=== PATIENT | female | born 1990 | race Caucasian/White ===

== ENCOUNTER → 2017-06-14 | Outpatient (CLI) | payer BC ==
[2017-06-14 18:54] LABS: BASO % 0.3 % (0.0-1.0); EOS # 0.1 K/mm3 (0.0-0.50); EOS % 0.7 % (0.0-3.0); LARGE UNSTAINED CELL # 0.1 K/mm3 (0.0-0.4); LARGE UNSTAINED CELL % 1.2 % (0.0-4.0); LYMPH # 2.2 K/mm3 (1.5-6.5); LYMPH % 29.6 % (24.0-44.0); MEAN CORPUSCULAR HEMOGLOBIN 28.8 pg (27.0-33.0); MEAN CORPUSCULAR VOLUME 82.2 fl (80.0-96.0); MONO # 0.4 K/mm3 (0.0-0.8); MONO % 5.1 % (0.0-5.0); NEUTROPHILS # 4.8 K/mm3 (1.8-7.7); NEUTROPHILS % 63.1 % (36.0-66.0); PLATELET COUNT, AUTOMATED 250 k/mm3 (150-450); RED CELL DISTRIBUTION WIDTH 12.7 % (11.5-14.5); WHITE BLOOD COUNT 7.6 K/mm3 (4.0-10.0)
[2017-06-15 10:46] LABS: HBsAg Prenatal NEGATIVE (NEGATIVE)
== END ==
LOC: M SMT 13:48
PROVIDERS: ATTEND Advanced Practice Midwife
DX: Z36 Encounter for antenatal screening of mother (principal); Z3A.00 Weeks of gestation of pregnancy not specified

== ENCOUNTER → 2017-06-20 | Outpatient (CLI) | payer BC ==
[2017-06-20 18:52] LABS: ALT/SGPT 26 U/L (12-78); AST/SGOT 16 U/L (15-37); BILIRUBIN,TOTAL 0.7 MG/DL (0.2-1.0); CREATININE FOR GFR 0.55 MG/DL (0.55-1.02); GLOMERULAR FILTRATION RATE > 60.0 (>60); URIC ACID 2.7 MG/DL (2.6-6.0)
== END ==
LOC: M SMT 11:12
PROVIDERS: ATTEND Advanced Practice Midwife
DX: O10.011 Pre-existing essential hypertension complicating pregnancy, first trimester (principal); Z36 Encounter for antenatal screening of mother; Z3A.00 Weeks of gestation of pregnancy not specified

== ENCOUNTER → 2017-09-05 | Outpatient (CLI) | payer BC, MEDICAID ==
--- NOTE | 2017-09-05 16:30 | REP ---
Clinical: Anatomical evaluation. Comparison: None. Findings: Examination demonstrates a single live intrauterine in transverse (head to maternal right) presentation. motion is identified by technologist. Placenta is noted posteriorly and grade zero without evidence for placenta previa or abruption. Amniotic fluid volume is normal. Cervix measures 4.4 cm in length and appears closed. No evidence for nuchal cord. Gestational age by LMP 19 weeks 0 days with CALEB 01/30/2018 . Gestational age by current measurements 19 weeks 4 days with CALEB 01/26/2018 . FHR equals 141 beats per minute. BPD 4.3 cm 18 weeks 6 days HC 16.6 cm 19 weeks 2 days AC 14.3 cm 19 weeks 4 days FL 3.1 cm 19 weeks 5 days HL 3.1 cm 20 weeks 3 days HC/AC ratio 1.17 Estimated weight 300 grams ( 68th percentile). Anatomical assessment demonstrates normal structures including cranium, choroid plexus, cavum, cerebellum/posterior fossa, facial features, lungs, diaphragm, stomach, cord insertion/three-vessel cord, kidneys/bladder, and extremities. Impression: Single live intrauterine in transverse lie demonstrating appropriate oval growth. Limited evaluation of the heart and cardiac ventricle outflow tracts and spine. Remainder of the anatomical assessment is complete and normal. Signed by Yury Arzate MD 09/05/2017 01:46 P
== END ==
LOC: M RAD 12:57
PROVIDERS: ATTEND Advanced Practice Midwife
DX: Z34.80 Encounter for supervision of other normal pregnancy, unspecified trimester (principal)

== ENCOUNTER → 2017-09-19 | Outpatient (CLI) | payer BC, MEDICAID ==
--- NOTE | 2017-09-19 13:36 | REP ---
OB ULTRASOUND: Real-time sonographic evaluation of gravid uterus is performed. There is a single living intrauterine gestation. Estimated gestational age is 21 weeks 0 days with EDC 01/30/2018. Today's measurements indicate appropriate growth. BPD 52 mm = 21 weeks 5 days, 71st percentile HC 191 mm = 21 weeks 3 days, 61st percentile AC 164 mm = 21 weeks 3 days, 60th percentile Femur length 42 mm = 23 weeks 5 days, over 95th percentile HC/AC ratio 1.16 within normal range. Estimated weight 494 grams, 95th percentile. Cervix is closed and measures 4 cm in length. heart rate 143 beats per minute. SEEN/GROSSLY UNREMARKABLE Lateral ventricles Yes Posterior fossa Yes Upper lip Yes Four-chamber heart Yes LVOT Yes RVOT Yes Stomach Yes Cord insertion Yes Three vessel cord Yes Kidneys Yes Bladder Yes Spine Yes position: Vertex. Placenta: Posterior and grade 0 with no previa or abruption. Amniotic fluid: Within normal limits. Signed by Connor Hendrix MD 09/20/2017 09:12 A
== END ==
LOC: M RAD 10:00
PROVIDERS: ATTEND Advanced Practice Midwife
DX: O99.212 Obesity complicating pregnancy, second trimester (principal); Z3A.21 21 weeks gestation of pregnancy

== ENCOUNTER → 2017-10-24 | Outpatient (CLI) | payer BC, MEDICAID ==
[2017-10-24 13:20] LABS: HEMATOCRIT 34.8 % (36.0-47.0); HEMOGLOBIN 11.9 g/dl (12.0-16.0); MEAN CORPUSCULAR HEMOGLOBIN 29.5 pg (27.0-33.0); MEAN CORPUSCULAR HGB CONC 34.2 g/dl (32.0-36.5); MEAN CORPUSCULAR VOLUME 86.1 fl (80.0-96.0); PLATELET COUNT, AUTOMATED 183 10^3/uL (150-450); RED BLOOD COUNT 4.04 10^6/uL (4.00-5.40); RED CELL DISTRIBUTION WIDTH 13.9 % (11.5-14.5); WHITE BLOOD COUNT 8.3 10^3/uL (4.0-10.0)
[2017-10-24 13:52] LABS: GLUCOSE CHALLENGE TEST 1 HOUR 110 MG/DL (LESS THAN 140)
== END ==
LOC: M SMT 11:15
DX: O99.212 Obesity complicating pregnancy, second trimester (principal); Z3A.00 Weeks of gestation of pregnancy not specified
CPT/HCPCS: 82950

== ENCOUNTER → 2017-11-23 | Outpatient (REF) | payer BC, MEDICAID | LOC: M LAB REF 21:44 | DX: J11.1 Influenza due to unidentified influenza virus with other respiratory manifestations (principal) | CPT/HCPCS: 87633 ==

== ENCOUNTER → 2018-01-02 | Outpatient (REF) | payer BC, MEDICAID | LOC: M LAB REF 17:23 | DX: Z34.83 Encounter for supervision of other normal pregnancy, third trimester (principal) ==

== ENCOUNTER 2018-01-09 15:54 | Inpatient (IN) | payer BC, MEDICAID ==
[2018-01-09 17:57] LABS: ALT/SGPT 18 U/L (12-78); AST/SGOT 17 U/L (7-37); BILIRUBIN,TOTAL 0.5 MG/DL (0.2-1.0); CREATININE FOR GFR 0.46 MG/DL (0.55-1.30); GLOMERULAR FILTRATION RATE > 60.0 (>60); LDH LACTATE DEHYDROGENASE 200 U/L (84-246); URIC ACID 2.8 MG/DL (2.6-6.0)
[2018-01-09] MEDS: miSOPROStol 50 MCG 1/2 TAB (S0191) PO (17:58)
[2018-01-09 18:00] LABS: HEMATOCRIT 37.1 % (36.0-47.0); HEMOGLOBIN 12.6 g/dl (12.0-15.5); MEAN CORPUSCULAR HEMOGLOBIN 28.7 pg (27.0-33.0); MEAN CORPUSCULAR VOLUME 84.5 fl (80.0-96.0); PLATELET COUNT, AUTOMATED 189 10^3/uL (150-450); RED BLOOD COUNT 4.39 10^6/uL (4.00-5.40); RED CELL DISTRIBUTION WIDTH 13.2 % (11.5-14.5); WHITE BLOOD COUNT 8.8 10^3/uL (4.0-10.0)
[2018-01-09] MEDS ORDERED: LABETALOL HCL 100 MG/20 ML VIAL As Ordered (19:18)
[2018-01-09] MEDS: LABETALOL HCL 100 MG/20 ML VIAL IV (19:28)
[2018-01-09] MEDS ORDERED: miSOPROStol 50 MCG 1/2 TAB (S0191) As Ordered (22:13)
[2018-01-10] MEDS: miSOPROStol 50 MCG 1/2 TAB (S0191) PO ×2 (02:17→06:41)
[2018-01-10] MEDS: OXYTOCIN DRIP 30 UNITS in APPROPRIATE DILUENT 1 EA IV (12:15)
[2018-01-10] MEDS ORDERED: LR 1,000 ML IV (15:00)
[2018-01-10] MEDS ORDERED: ACETAMINOPHEN 500 MG TAB PO (15:00)
[2018-01-11] MEDS: PROMETHAZINE INJ 25 MG/ML VIAL (J2550) IV (01:28)
[2018-01-11] MEDS: BUTORPHANOL 2 MG/ML INJ (J0595) IV ×2 (01:29→07:15)
[2018-01-11 02:58] LABS: HEMATOCRIT 37.9 % (36.0-47.0); MEAN CORPUSCULAR HGB CONC 34.3 g/dl (32.0-36.5); MEAN CORPUSCULAR VOLUME 84.4 fl (80.0-96.0); PLATELET COUNT, AUTOMATED 154 10^3/uL (150-450); RED BLOOD COUNT 4.49 10^6/uL (4.00-5.40); RED CELL DISTRIBUTION WIDTH 13.3 % (11.5-14.5); WHITE BLOOD COUNT 16.1 10^3/uL (4.0-10.0)
[2018-01-11 06:55] LABS: CORD GAS ABE A -11.7; CORD GAS HCO3 A 22.2 MEQ/L; CORD GAS O2 SAT A < 15.0 %; CORD GAS PO2 A 15.6 mmHg; CORD GAS TCO2 A 25.3 MEQ/L
[2018-01-11 06:56] LABS: CORD GAS ABE V -14.1; CORD GAS HCO3 V 19.1 MEQ/L; CORD GAS O2 SAT V 18.9 %; CORD GAS PCO2 V 84.4 mmHg; CORD GAS SBC V 12.4 MEQ/L; CORD GAS TCO2 V 21.7 MEQ/L
[2018-01-11 06:58] LABS: CORD GAS PH A 6.969 UNITS
[2018-01-11 07:01] LABS: CORD GAS PH V 6.973 UNITS
[2018-01-11 07:04] LABS: CORD GAS SBC A 13.8 MEQ/L
[2018-01-11] MEDS: cefoTEtan DISODIUM 2 GM in D5W MINI-BAG PLUS 50 ML IV (07:41)
[2018-01-11] MEDS: OXYTOCIN DRIP 30 UNITS in APPROPRIATE DILUENT 1 EA IV (07:42)
[2018-01-11] MEDS: LR 1,000 ML IV ×2 (07:42→15:42)
[2018-01-11] MEDS ORDERED: ACETAMINOPHEN 500 MG TAB PO (07:45)
[2018-01-11] MEDS ORDERED: DIBUCAINE 1% OINTMENT 30GM TOP (07:45)
[2018-01-11] MEDS ORDERED: PROMETHAZINE 25 MG TAB PO (07:45)
[2018-01-11] MEDS ORDERED: ONDANSETRON 4MG/2ML VIAL (J2405) IV (07:45)
[2018-01-11] MEDS ORDERED: DOCUSATE SODIUM 100 MG CAP PO (07:45)
[2018-01-11] MEDS: PRENATAL VITAMINS CHEWABLE TABLET PO (09:00)
[2018-01-11] MEDS: LIDOCAINE 1% MDV INJ 50 ML VIAL SC (11:30)
[2018-01-11] MEDS: RHOGAM 300 MCG (1500 IU) INJ (J2790) IM (12:05)
[2018-01-11] MEDS: MEASLES,MUMPS,RUBELLA VACCINE INJ (MMR-II) (90707) SC (12:05)
[2018-01-11] MEDS ORDERED: LIDOCAINE 1% MDV 20ML VIAL As Ordered (14:23)
[2018-01-12] MEDS: IBUPROFEN 800 MG TAB PO (06:28)
[2018-01-12] MEDS: PRENATAL VITAMINS CHEWABLE TABLET PO (09:00)
[2018-01-13] MEDS: PRENATAL VITAMINS CHEWABLE TABLET PO (09:00)
== END 2018-01-13 11:40 | disposition home or self-care (01) | DRG 541 ==
LOC: M LDI 15:54 → M OBS 01-11 08:57
PROC: 3E0P7GC Introduction of Other Therapeutic Substance into Female Reproductive, Via Natural or Artificial Opening (ICD-10-PCS; 2018-01-09)
PROC: 10907ZC Drainage of Amniotic Fluid, Therapeutic from Products of Conception, Via Natural or Artificial Opening (ICD-10-PCS; 2018-01-10)
PROC: 10D07Z3 Extraction of Products of Conception, Low Forceps, Via Natural or Artificial Opening (ICD-10-PCS; principal; 2018-01-11)
PROC: 10D17Z9 Manual Extraction of Products of Conception, Retained, Via Natural or Artificial Opening (ICD-10-PCS; 2018-01-11)
PROC: 0KQM0ZZ Repair Perineum Muscle, Open Approach (ICD-10-PCS; 2018-01-11)
DX: O13.4 Gestational [pregnancy-induced] hypertension without significant proteinuria, complicating childbirth (principal); O76 Abnormality in fetal heart rate and rhythm complicating labor and delivery; Z3A.37 37 weeks gestation of pregnancy; O73.0 Retained placenta without hemorrhage; Z37.0 Single live birth; O70.1 Second degree perineal laceration during delivery

== ENCOUNTER → 2019-01-01 | Outpatient (CLI) | payer OTHER ==
[~2019-01-01] MED LIST: IBUP-1114 PO; MAPA500T2 PO
== END ==
LOC: M WUC 12:09
PROVIDERS: ATTEND Advanced Practice Midwife
DX: Z12.4 Encounter for screening for malignant neoplasm of cervix (principal); N87.0 Mild cervical dysplasia

== ENCOUNTER → 2020-08-11 | Outpatient (CLI) | payer OTHER, MEDICARE ==
[2020-08-11 21:22] LABS: HEMOGLOBIN A1c 5.1 %
[2020-08-11 21:29] LABS: ALBUMIN 3.5 GM/DL (3.2-5.2); ALT/SGPT 26 U/L (12-78); BILIRUBIN,TOTAL 0.6 MG/DL (0.2-1.0); BLOOD UREA NITROGEN 12 MG/DL (7-18); CALCIUM LEVEL 8.9 MG/DL (8.5-10.1); CARBON DIOXIDE LEVEL 29 MEQ/L (21-32); CHLORIDE LEVEL 105 MEQ/L (98-107); CREATININE FOR GFR 0.66 MG/DL (0.55-1.30); GLOMERULAR FILTRATION RATE > 60.0 (>60); GLUCOSE, FASTING 73 MG/DL (70-100); POTASSIUM SERUM 4.4 MEQ/L (3.5-5.1); SODIUM LEVEL 136 MEQ/L (136-145); TOTAL PROTEIN 6.8 GM/DL (6.4-8.2)
== END ==
LOC: M PLALAB 12:41
PROVIDERS: ATTEND Nurse Practitioner Adult Health
DX: R03.0 Elevated blood-pressure reading, without diagnosis of hypertension (principal); Z13.29 Encounter for screening for other suspected endocrine disorder; Z13.1 Encounter for screening for diabetes mellitus

== ENCOUNTER 2022-10-19 11:00 | Emergency (ER) | payer OTHER, MEDICARE ==
[~2022-10-19] VITALS: Ht 185.4 cm; Wt 154.3 kg
[2022-10-19 15:40] VITALS: BP 172/118
== END 2022-10-19 15:50 | disposition home or self-care (01) ==
LOC: M ED 11:00
DX: S02.2XXA Fracture of nasal bones, initial encounter for closed fracture (principal); W22.8XXA Striking against or struck by other objects, initial encounter; Z88.7 Allergy status to serum and vaccine

== ENCOUNTER → 2022-12-06 | Outpatient (CLI) | payer MEDICARE, OTHER ==
[2022-12-06 14:24] LABS: HEMATOCRIT 42.2 % (36.0-47.0); HEMOGLOBIN 13.8 g/dl (12.0-15.5); MEAN CORPUSCULAR HEMOGLOBIN 27.2 pg (27.0-33.0); MEAN CORPUSCULAR HGB CONC 32.7 g/dl (32.0-36.5); MEAN CORPUSCULAR VOLUME 83.1 fl (80.0-96.0); PLATELET COUNT, AUTOMATED 235 10^3/uL (150-450); RED BLOOD COUNT 5.08 10^6/uL (4.00-5.40); WHITE BLOOD COUNT 8.4 10^3/uL (4.0-10.0)
[2022-12-06 14:45] LABS: ALBUMIN 3.9 G/DL (3.2-5.2); ALKALINE PHOSPHATASE 87 U/L (46-116); ALT/SGPT 21 U/L (7.0-40); AST/SGOT 22 U/L (<34); BILIRUBIN,TOTAL 0.7 MG/DL (0.3-1.2); BLOOD UREA NITROGEN 15 MG/DL (9-23); CALCIUM LEVEL 9.2 MG/DL (8.5-10.1); CARBON DIOXIDE LEVEL 30 MMOL/L (20-31); CHLORIDE LEVEL 105 MMOL/L (98-107); CREATININE FOR GFR 0.64 MG/DL (0.55-1.30); GLOMERULAR FILTRATION RATE > 60.0 (>60); GLUCOSE, FASTING 73 MG/DL (60-100); POTASSIUM SERUM 4.1 MMOL/L (3.5-5.1); SODIUM LEVEL 141 MMOL/L (136-145); TOTAL PROTEIN 6.9 G/DL (5.7-8.2)
[2022-12-06 14:48] LABS: THYROID STIMULATING HORMONE 1.591 uIU/ML (0.55-4.78)
== END ==
LOC: M PLALAB 10:42
PROVIDERS: ATTEND Nurse Practitioner Adult Health
DX: Z13.1 Encounter for screening for diabetes mellitus (principal); Z13.29 Encounter for screening for other suspected endocrine disorder; Z79.899 Other long term (current) drug therapy

== ENCOUNTER 2023-04-03 12:25 | Emergency (ER) | payer OTHER ==
[~2023-04-03] VITALS: Ht 180.3 cm; Wt 145.4 kg
[2023-04-03 12:28] VITALS: TEMP 98.3; O2SAT 100
[2023-04-03 13:51] VITALS: BP 190/91
[2023-04-03 14:09] LABS: BASO % 0.4 % (0.0-1.0); EOS # 0.1 10^3/uL (0.0-0.5); LYMPH # 2.5 10^3/uL (1.5-5.0); LYMPH % 31.7 % (24.0-44.0); MEAN CORPUSCULAR HEMOGLOBIN 27.8 pg (27.0-33.0); MEAN CORPUSCULAR HGB CONC 33.3 g/dl (32.0-36.5); MEAN CORPUSCULAR VOLUME 83.3 fl (80.0-96.0); MONO # 0.5 10^3/uL (0.0-0.8); NEUTROPHILS # 4.8 10^3/uL (1.5-8.5); NEUTROPHILS % 60.5 % (36.0-66.0); PLATELET COUNT, AUTOMATED 235 10^3/uL (150-450); RED BLOOD COUNT 5.04 10^6/uL (4.00-5.40); WHITE BLOOD COUNT 7.9 10^3/uL (4.0-10.0)
[2023-04-03] MEDS ORDERED: PERC5TAB12 PO (14:55)
[2023-04-03] MEDS ORDERED: AMOX500C PO (14:55)
== END 2023-04-03 15:00 | disposition home or self-care (01) ==
LOC: M ED 12:25
DX: I10 Essential (primary) hypertension (principal); R55 Syncope and collapse; K04.7 Periapical abscess without sinus; F12.90 Cannabis use, unspecified, uncomplicated; Z88.7 Allergy status to serum and vaccine

== ENCOUNTER → 2023-10-18 | Outpatient (CLI) | payer OTHER ==
[~2023-10-18] MED LIST changes: +AMOX500C PO; +PERC5TAB12 PO
== END ==
LOC: M WHC 13:19
PROVIDERS: ATTEND Specialist
DX: O00.01 Abdominal pregnancy with intrauterine pregnancy (principal); Z36.2 Encounter for other antenatal screening follow-up; Z3A.24 24 weeks gestation of pregnancy

== ENCOUNTER → 2023-10-31 | Outpatient (CLI) | payer OTHER ==
[2023-10-31 17:52] LABS: URIC ACID 2.8 MG/DL (3.1-7.8)
[2023-10-31 17:54] LABS: LDH LACTATE DEHYDROGENASE 148 U/L (120-246)
[2023-10-31 17:55] LABS: ALT/SGPT 17 U/L (7.0-40); AST/SGOT 13 U/L (<34); BILIRUBIN,TOTAL 0.5 MG/DL (0.3-1.2); CREATININE FOR GFR 0.49 MG/DL (0.55-1.30); GLOMERULAR FILTRATION RATE > 60.0 (>60); GLUCOSE CHALLENGE TEST 1 HOUR 101 MG/DL (LESS THAN 140)
[2023-10-31 17:57] LABS: HEMATOCRIT 36.4 % (36.0-47.0); HEMOGLOBIN 12.3 g/dl (12.0-15.5); MEAN CORPUSCULAR HEMOGLOBIN 29.4 pg (27.0-33.0); MEAN CORPUSCULAR HGB CONC 33.8 g/dl (32.0-36.5); MEAN CORPUSCULAR VOLUME 86.9 fl (80.0-96.0); PLATELET COUNT, AUTOMATED 200 10^3/uL (150-450); RED BLOOD COUNT 4.19 10^6/uL (4.00-5.40); WHITE BLOOD COUNT 7.5 10^3/uL (4.0-10.0)
[2023-10-31 18:00] LABS: TOTAL PROTEIN,RANDOM URINE 30.6 MG/DL (0.0-14.0)
[2023-10-31 18:04] LABS: CREATININE,RANDOM URINE 136.1 MG/DL
== END ==
LOC: M PLALAB 08:53
PROVIDERS: ATTEND Specialist
DX: Z34.82 Encounter for supervision of other normal pregnancy, second trimester (principal)

== ENCOUNTER → 2023-11-27 | Outpatient (CLI) | payer OTHER | LOC: M WHC 11:58 | PROVIDERS: ATTEND Specialist | DX: Z34.82 Encounter for supervision of other normal pregnancy, second trimester (principal) ==

== ENCOUNTER 2023-12-13 15:10 | Observation (INO) | payer OTHER ==
[2023-12-13] VITALS (18 sets, daily range): BP systolic 120–187; BP diastolic 57–108
[~2023-12-13] VITALS: Ht 180.3 cm; Wt 151.8 kg
[2023-12-13] MEDS ORDERED: LABE200T5 PO (15:32)
[2023-12-13] MEDS ORDERED: FLUTISP (15:32)
[2023-12-13] MEDS ORDERED: AZEL1SPR3 (15:32)
[2023-12-13] MEDS ORDERED: PRENTAB9 PO (15:32)
[2023-12-13] MEDS ORDERED: FAMO40TA3 PO (15:32)
[2023-12-13 16:12] LABS: HEMATOCRIT 33.8 % (36.0-47.0); HEMOGLOBIN 11.7 g/dl (12.0-15.5); MEAN CORPUSCULAR HEMOGLOBIN 29.4 pg (27.0-33.0); MEAN CORPUSCULAR HGB CONC 34.6 g/dl (32.0-36.5); MEAN CORPUSCULAR VOLUME 84.9 fl (80.0-96.0); PLATELET COUNT, AUTOMATED 198 10^3/uL (150-450); RED BLOOD COUNT 3.98 10^6/uL (4.00-5.40); WHITE BLOOD COUNT 7.4 10^3/uL (4.0-10.0)
[2023-12-13] MEDS: LABETALOL 200 MG TAB PO ONE (16:24)
[2023-12-13 16:34] LABS: TOTAL PROTEIN,RANDOM URINE 25.6 MG/DL (0.0-14.0)
[2023-12-13 16:39] LABS: CREATININE,RANDOM URINE 103.5 MG/DL
[2023-12-13 16:40] LABS: ALBUMIN 2.8 G/DL (3.2-5.2); ALKALINE PHOSPHATASE 75 U/L (46-116); ALT/SGPT 13 U/L (7.0-40); AST/SGOT 14 U/L (<34); BILIRUBIN,TOTAL 0.6 MG/DL (0.3-1.2); BLOOD UREA NITROGEN 9 MG/DL (9-23); CALCIUM LEVEL 8.2 MG/DL (8.5-10.1); CARBON DIOXIDE LEVEL 22 MMOL/L (20-31); CHLORIDE LEVEL 108 MMOL/L (98-107); CREATININE FOR GFR 0.44 MG/DL (0.55-1.30); GLOMERULAR FILTRATION RATE > 60.0 (>60); GLUCOSE, FASTING 87 MG/DL (60-100); SODIUM LEVEL 136 MMOL/L (136-145); TOTAL PROTEIN 5.9 G/DL (5.7-8.2)
[2023-12-13] MEDS: BETAMETHASONE SOLUSPAN 6MG/ML 5ML VIAL IM ONE (17:24)
[2023-12-13] MEDS: NIFEdipine 30MG XL TAB PO STA (17:37)
[2023-12-13] MEDS: NIFEdipine 10 MG CAP PO STA (18:21)
[2023-12-14] VITALS (7 sets, daily range): BP systolic 114–157; BP diastolic 56–101
[2023-12-14] MEDS: LABETALOL 200 MG TAB PO SCH (05:26)
[2023-12-14] MEDS ORDERED: NIFE1TAB52 PO (06:58)
[2023-12-14] MEDS ORDERED: LABE20TAB PO (06:58)
[2023-12-14] MEDS ORDERED: NIFEdipine 30MG XL TAB PO SCH (18:00)
== END 2023-12-14 07:10 | disposition home or self-care (01) ==
LOC: M LDO 15:10 → M LDI 18:08
PROVIDERS: ADMIT Obstetrics & Gynecology; ATTEND Obstetrics & Gynecology
DX: O10.013 Pre-existing essential hypertension complicating pregnancy, third trimester (principal); O99.213 Obesity complicating pregnancy, third trimester; Z88.7 Allergy status to serum and vaccine; Z79.899 Other long term (current) drug therapy; Z3A.32 32 weeks gestation of pregnancy
CPT/HCPCS: 59025; 76815; 76820; 80053; 82570; 84156; 85027; 96372; G0463; J0702

== ENCOUNTER 2023-12-14 17:03 | Outpatient (CLI) | payer OTHER ==
[~2023-12-14] VITALS: Ht 180.3 cm; Wt 149.8 kg
[~2023-12-14 17:03] MED LIST changes: +AZEL1SPR3; +FAMO40TA3 PO; +FLUTISP; +LABE200T5 PO; +LABE20TAB PO; +NIFE1TAB52 PO; +PRENTAB9 PO
[2023-12-14 17:17] VITALS: BP 135/77
[2023-12-14] MEDS: BETAMETHASONE SOLUSPAN 6MG/ML 5ML VIAL IM ONE (17:26)
== END 2023-12-14 17:30 | disposition home or self-care (01) ==
LOC: M LDO 17:03
PROVIDERS: ATTEND Advanced Practice Midwife
DX: O10.013 Pre-existing essential hypertension complicating pregnancy, third trimester (principal); Z3A.32 32 weeks gestation of pregnancy
CPT/HCPCS: 96372; J0702

== ENCOUNTER → 2023-12-24 | Outpatient (CLI) | payer OTHER ==
[2023-12-24 17:29] LABS: URIC ACID 2.8 MG/DL (3.1-7.8)
[2023-12-24 17:32] LABS: ALT/SGPT 12 U/L (7.0-40); AST/SGOT 10 U/L (<34); BILIRUBIN,TOTAL 0.4 MG/DL (0.3-1.2); CREATININE FOR GFR 0.48 MG/DL (0.55-1.30); GLOMERULAR FILTRATION RATE > 60.0 (>60); LDH LACTATE DEHYDROGENASE 147 U/L (120-246)
[2023-12-24 17:43] LABS: TOTAL PROTEIN,RANDOM URINE 15.3 MG/DL (0.0-14.0)
[2023-12-24 17:48] LABS: CREATININE,RANDOM URINE 69.8 MG/DL
== END ==
LOC: M PLALAB 15:06
PROVIDERS: ATTEND Obstetrics & Gynecology
DX: O10.913 Unspecified pre-existing hypertension complicating pregnancy, third trimester (principal)

== ENCOUNTER → 2023-12-28 | Outpatient (CLI) | payer OTHER | LOC: M WHC 12:47 | PROVIDERS: ATTEND Obstetrics & Gynecology | DX: O10.919 Unspecified pre-existing hypertension complicating pregnancy, unspecified trimester (principal) ==

== ENCOUNTER → 2024-01-07 | Outpatient (REF) | payer OTHER | LOC: M SFHCWAGY 12:29 | PROVIDERS: ATTEND Specialist | DX: Z36.85 Encounter for antenatal screening for Streptococcus B (principal); O10.913 Unspecified pre-existing hypertension complicating pregnancy, third trimester ==

== ENCOUNTER → 2024-05-15 | Outpatient (REF) | payer OTHER ==
[~2024-05-15] MED LIST changes: +ACET-907 PO
[2024-05-17 12:33] LABS: HPV APTIMA Not Detected (Not Detected)
== END ==
LOC: M PLALAB 14:02
PROVIDERS: ATTEND Advanced Practice Midwife
DX: Z12.4 Encounter for screening for malignant neoplasm of cervix (principal)

== ENCOUNTER 2024-08-15 10:26 | Emergency (ER) | payer OTHER ==
[~2024-08-15] VITALS: Ht 177.8 cm; Wt 137.4 kg
[2024-08-15] MEDS ORDERED: AMLO1TAB24 PO (10:39)
[2024-08-15] MEDS ORDERED: VALS1TAB66 PO (10:40)
[2024-08-15] MEDS ORDERED: OMEP40CA4 PO (10:40)
[2024-08-15] MEDS ORDERED: IBUP200T46 PO (10:52)
[2024-08-15 11:18] LABS: BASO % 0.4 % (0.0-1.0); EOS # 0.1 10^3/uL (0.0-0.5); EOS % 0.7 % (0.0-3.0); HEMOGLOBIN 13.4 g/dl (12.0-15.5); LYMPH # 1.9 10^3/uL (1.5-5.0); LYMPH % 28.1 % (24.0-44.0); MEAN CORPUSCULAR HEMOGLOBIN 28.1 pg (27.0-33.0); MEAN CORPUSCULAR HGB CONC 33.5 g/dl (32.0-36.5); MEAN CORPUSCULAR VOLUME 83.9 fl (80.0-96.0); MONO # 0.4 10^3/uL (0.0-0.8); MONO % 5.7 % (2.0-8.0); NEUTROPHILS # 4.4 10^3/uL (1.5-8.5); NEUTROPHILS % 64.8 % (36.0-66.0); PLATELET COUNT, AUTOMATED 260 10^3/uL (150-450); RED BLOOD COUNT 4.77 10^6/uL (4.00-5.40); WHITE BLOOD COUNT 6.8 10^3/uL (4.0-10.0)
[2024-08-15] MEDS: diphenhydrAMINE 50MG/ML VIAL IV STA (11:25)
[2024-08-15] MEDS: METOCLOPRAMIDE INJ 10MG/2ML VIAL IV ONE (11:27)
[2024-08-15] MEDS: KETOROLAC 30 MG/ML 1ML VIAL IV ONE (11:27)
[2024-08-15 11:39] LABS: LIPASE 63 U/L (12-53)
[2024-08-15 11:42] LABS: ALBUMIN 4.1 G/DL (3.2-5.2); ALKALINE PHOSPHATASE 72 U/L (35-104); ALT/SGPT 18 U/L (7.0-40); AST/SGOT 11 U/L (<34); BILIRUBIN,DIRECT 0.2 MG/DL (<0.4); BILIRUBIN,TOTAL 0.7 MG/DL (0.3-1.2); BLOOD UREA NITROGEN 13 MG/DL (9-23); CALCIUM LEVEL 9.6 MG/DL (8.5-10.1); CARBON DIOXIDE LEVEL 26 MMOL/L (20-31); CHLORIDE LEVEL 106 MMOL/L (98-107); CK-MB VALUE MASS < 1.0 NG/ML (<3.6); CPK CREATINE PHOSPHOKINASE 92 U/L (34-145); CREATININE FOR GFR 0.52 MG/DL (0.55-1.30); GLOMERULAR FILTRATION RATE > 60.0 (>60); GLUCOSE, FASTING 89 MG/DL (60-100); MB/CK RELATIVE INDEX 1.08 (< OR =4); SODIUM LEVEL 140 MMOL/L (136-145); TOTAL PROTEIN 7.5 G/DL (5.7-8.2)
[2024-08-15] MEDS ORDERED: AMOX875T2 PO (13:53)
[2024-08-15] MEDS ORDERED: amLODIPine 5 MG TAB PO ONE (14:00)
[2024-08-15] MEDS ORDERED: KETO10TAB PO (14:12)
[2024-08-15 14:23] VITALS: BP 171/98; TEMP 98.1; O2SAT 98
== END 2024-08-15 14:34 | disposition home or self-care (01) ==
LOC: M ED 10:26
DX: K04.7 Periapical abscess without sinus (principal); I10 Essential (primary) hypertension; R94.31 Abnormal electrocardiogram [ECG] [EKG]; F12.10 Cannabis abuse, uncomplicated; Z88.7 Allergy status to serum and vaccine; Z79.1 Long term (current) use of non-steroidal anti-inflammatories (NSAID); Z79.2 Long term (current) use of antibiotics; Z79.899 Other long term (current) drug therapy
CPT/HCPCS: 36415; 80048; 80076; 82550; 82553; 83690; 84484; 85025; 93005; 96374; 96375; 99284; J1200; J1885; J2765

== ENCOUNTER → 2024-09-16 | Outpatient (CLI) | payer OTHER ==
[~2024-09-16] MED LIST changes: +AMLO1TAB24 PO; +AMOX875T2 PO; +IBUP200T46 PO; +KETO10TAB PO; +OMEP40CA4 PO; +VALS1TAB66 PO
[2024-09-16 15:20] LABS: ALBUMIN 3.6 G/DL (3.2-5.2); ALKALINE PHOSPHATASE 68 U/L (35-104); ALT/SGPT 16 U/L (7.0-40); AST/SGOT 14 U/L (<34); BILIRUBIN,TOTAL 0.7 MG/DL (0.3-1.2); BLOOD UREA NITROGEN 11 MG/DL (9-23); CALCIUM LEVEL 9.4 MG/DL (8.5-10.1); CARBON DIOXIDE LEVEL 25 MMOL/L (20-31); CHLORIDE LEVEL 104 MMOL/L (98-107); CREATININE FOR GFR 0.59 MG/DL (0.55-1.30); GLOMERULAR FILTRATION RATE > 60.0 (>60); GLUCOSE, FASTING 69 MG/DL (60-100); POTASSIUM SERUM 4.1 MMOL/L (3.5-5.1); SODIUM LEVEL 140 MMOL/L (136-145); TOTAL PROTEIN 6.4 G/DL (5.7-8.2)
== END ==
LOC: M PLALAB 09:51
PROVIDERS: ATTEND Nurse Practitioner Adult Health
DX: I10 Essential (primary) hypertension (principal)

== ENCOUNTER 2024-11-14 08:20 | Day surgery (SDC) | payer OTHER ==
[~2024-11-14] VITALS: Ht 180.3 cm; Wt 140.3 kg
[~2024-11-14 08:20] MED LIST changes: +ACETAMINOPHEN 1000MG/100ML IV BAG As Ordered ONE; +APAP500T10 PO; +DROS4TAB PO; +LIDOCAINE 2% 100MG/5ML SDV (FOR ANES.) As Ordered ONE; +MIDAZOLAM INJ 2MG/2ML VIAL As Ordered ONE; +ONDANSETRON 4MG 2ML VIAL As Ordered ONE; +ROCURONIUM BROMIDE 50MG/5ML VIAL As Ordered ONE; +SUGAMMADEX SODIUM 500 MG/5 ML VIAL (BRIDION) As Ordered ONE; +fentaNYL 100 MCG/2 ML INJECTION As Ordered ONE; +propofoL 200 MG/20 ML VIAL As Ordered ONE
[2024-11-14] MEDS: AMPICILLIN SOD/SULBACTAM SOD 3 GM in SODIUM CHLORIDE 0.9% 100ML ADD 100 ML IV ONE (10:30)
[2024-11-14] MEDS: OXYMETAZOLINE 0.05% NASAL SPRAY As Ordered ONE (10:30)
[2024-11-14] MEDS: LIDOCAINE 2% W/ EPINEPHRINE 1.7 ML DENTAL INJ As Ordered ONE (10:40)
[2024-11-14] MEDS: CHLORHEXIDINE GLUCONATE 0.12 % 15ML UDC (PERIDEX ORAL RINSE) As Ordered ONE (10:49)
[2024-11-14] MEDS: BUPivacaine LIPOSOME/PF 266MG 20ML VIAL (13.3MG/ML)(EXPAREL) As Ordered ONE (11:06)
[2024-11-14] MEDS ORDERED: HYDROMORPHONE HCL 0.5 MG/ 0.5 ML SYRINGE IV PRN (11:25)
[2024-11-14] MEDS ORDERED: oxyCODONE 5MG TAB PO PRN (11:25)
[2024-11-14] MEDS ORDERED: fentaNYL 100 MCG/2 ML INJECTION IV PRN (11:25)
[2024-11-14] MEDS ORDERED: LR 1,000 ML IV SCH (11:25)
[2024-11-14] MEDS: ONDANSETRON 4MG 2ML VIAL IV PRN (12:03)
[2024-11-14 12:26] VITALS: BP 155/90; TEMP 97.2; O2SAT 97
== END 2024-11-14 12:47 | disposition home or self-care (01) ==
LOC: M SDC 08:20
PROVIDERS: ATTEND Dentist
DX: K02.9 Dental caries, unspecified (principal); F40.232 Fear of other medical care; I10 Essential (primary) hypertension; Z68.41 Body mass index [BMI] 40.0-44.9, adult; Z88.7 Allergy status to serum and vaccine; Z91.018 Allergy to other foods; Z79.899 Other long term (current) drug therapy
CPT/HCPCS: 81025; 88300; D7210; J0131; J0295; J0666; J1100; J2250; J2405; J3010

== ENCOUNTER → 2025-01-02 | Outpatient (CLI) | payer OTHER ==
[~2025-01-02] MED LIST changes: -ACETAMINOPHEN 1000MG/100ML IV BAG As Ordered ONE; -LIDOCAINE 2% 100MG/5ML SDV (FOR ANES.) As Ordered ONE; -MIDAZOLAM INJ 2MG/2ML VIAL As Ordered ONE; -ONDANSETRON 4MG 2ML VIAL As Ordered ONE; -ROCURONIUM BROMIDE 50MG/5ML VIAL As Ordered ONE; -SUGAMMADEX SODIUM 500 MG/5 ML VIAL (BRIDION) As Ordered ONE; -fentaNYL 100 MCG/2 ML INJECTION As Ordered ONE; -propofoL 200 MG/20 ML VIAL As Ordered ONE
[2025-01-02 15:41] LABS: HCG, SERUM QUALITATIVE NEGATIVE (NEGATIVE)
== END ==
LOC: M PLALAB 13:11
PROVIDERS: ATTEND Advanced Practice Midwife
DX: N91.2 Amenorrhea, unspecified (principal)

== ENCOUNTER → 2025-02-05 | Outpatient (CLI) | payer OTHER | LOC: M WHC 09:05 | PROVIDERS: ATTEND Advanced Practice Midwife | DX: N61.0 Mastitis without abscess (principal) ==

== ENCOUNTER → 2025-02-12 | Outpatient (CLI) | payer OTHER ==
[2025-02-12 10:28] LABS: HEMATOCRIT 39.8 % (36.0-47.0); HEMOGLOBIN 13.3 g/dl (12.0-15.5); MEAN CORPUSCULAR HGB CONC 33.4 g/dl (32.0-36.5); MEAN CORPUSCULAR VOLUME 80.9 fl (80.0-96.0); PLATELET COUNT, AUTOMATED 241 10^3/uL (150-450); RED BLOOD COUNT 4.92 10^6/uL (4.00-5.40); WHITE BLOOD COUNT 7.1 10^3/uL (4.0-10.0)
[2025-02-12 10:48] LABS: ALBUMIN 3.8 G/DL (3.2-5.2); ALKALINE PHOSPHATASE 76 U/L (35-104); ALT/SGPT 18 U/L (7.0-40); AST/SGOT 13 U/L (<34); BILIRUBIN,TOTAL 0.9 MG/DL (0.3-1.2); BLOOD UREA NITROGEN 14 MG/DL (9-23); CALCIUM LEVEL 8.8 MG/DL (8.5-10.1); CARBON DIOXIDE LEVEL 27 MMOL/L (20-31); CHLORIDE LEVEL 106 MMOL/L (98-107); GLOMERULAR FILTRATION RATE > 90.0 (>60); GLUCOSE, FASTING 89 MG/DL (60-100); POTASSIUM SERUM 4.1 MMOL/L (3.5-5.1); SODIUM LEVEL 141 MMOL/L (136-145); TOTAL PROTEIN 6.8 G/DL (5.7-8.2)
== END ==
LOC: M PLALAB 08:48
PROVIDERS: ATTEND Nurse Practitioner Adult Health
DX: I10 Essential (primary) hypertension (principal)

== ENCOUNTER → 2025-02-12 | Outpatient (CLI) | payer OTHER | LOC: M CARPUL 13:08 | PROVIDERS: ATTEND Nurse Practitioner Adult Health | DX: I10 Essential (primary) hypertension (principal) ==

== ENCOUNTER → 2025-02-20 | Outpatient (CLI) | payer OTHER | LOC: M RAD 06:19 | PROVIDERS: ATTEND Nurse Practitioner Adult Health | DX: I10 Essential (primary) hypertension (principal) ==

== ENCOUNTER → 2025-06-22 | Outpatient (CLI) | payer OTHER ==
[2025-06-22 16:08] LABS: PLATELET COUNT, AUTOMATED 227 10^3/uL (150-450)
[2025-06-22 16:09] LABS: ESTIMATED AVERAGE GLUCOSE 97.0 MG/DL (60-110)
[2025-06-22 16:33] LABS: FREE T4 1.18 NG/DL (0.89-1.76)
[2025-06-22 16:38] LABS: HCG, SERUM QUALITATIVE NEGATIVE (NEGATIVE)
[2025-06-22 17:21] LABS: ALT/SGPT 20 U/L (7.0-40); AST/SGOT 16 U/L (<34); CALCIUM LEVEL 8.9 MG/DL (8.5-10.1); CARBON DIOXIDE LEVEL 27 MMOL/L (20-31); CHLORIDE LEVEL 106 MMOL/L (98-107); CREATININE FOR GFR 0.59 MG/DL (0.55-1.30); GLOMERULAR FILTRATION RATE > 90.0 (>60); POTASSIUM SERUM 4.1 MMOL/L (3.5-5.1); SODIUM LEVEL 136 MMOL/L (136-145)
== END ==
LOC: M PLALAB 12:14
PROVIDERS: ATTEND Nurse Practitioner Adult Health
DX: I10 Essential (primary) hypertension (principal); N91.2 Amenorrhea, unspecified; Z13.29 Encounter for screening for other suspected endocrine disorder; Z83.3 Family history of diabetes mellitus

== ENCOUNTER → 2025-07-09 | Outpatient (REF) | payer OTHER | LOC: M LAB REF 14:01 | PROVIDERS: ATTEND Nurse Practitioner Family | DX: J06.9 Acute upper respiratory infection, unspecified (principal) ==

== ENCOUNTER → 2025-07-30 | Outpatient (CLI) | payer OTHER ==
[~2025-07-30] MED LIST changes: +ISOVUE-370 76% 100 ML VIAL As Ordered ONE
== END ==
LOC: M RAD 14:56
PROVIDERS: ATTEND Otolaryngology
DX: J34.2 Deviated nasal septum (principal); R07.0 Pain in throat
CPT/HCPCS: 70486; 70491; Q9967